=== PATIENT | male | born 1985 | race Caucasian/White ===

== ENCOUNTER 2019-01-12 08:00 | Outpatient (CLI) | payer MEDICAID ==
[2019-01-12 19:12] LABS: BASOPHILS % (AUTO) 0.4 %; EOSINOPHILS # (AUTO) 0.1 10^3/uL (0.0-0.7); EOSINOPHILS % (AUTO) 1.5 %; HGB - HEMOGLOBIN 13.7 g/dL (14.0-18.0); LYMPHOCYTES # (AUTO) 2.3 10^3/uL (1.5-3.5); LYMPHOCYTES % (AUTO) 34.1 %; MEAN CORPUSCULAR HEMOGLOBIN 32.1 pg (27.0-31.0); MEAN CORPUSCULAR HGB CONC 33.4 g/dL (32.0-36.0); MEAN CORPUSCULAR VOLUME 96.2 fL (80.0-94.0); MEAN PLATELET VOLUME 7.9 fL (7.4-11.4); MONOCYTES # (AUTO) 0.6 10^3/uL (0.0-1.0); MONOCYTES % (AUTO) 9.1 %; NEUTROPHILS # (AUTO) 3.8 10^3/uL (1.5-6.6); NEUTROPHILS % (AUTO) 54.9 %; PLT - PLATELET COUNT 182 10^3/uL (130-450); RED BLOOD COUNT 4.26 10^6/uL (4.70-6.10); RED CELL DISTRIBUTION WIDTH 12.5 % (12.0-15.0); WHITE BLOOD COUNT 6.9 x10^3/uL (4.8-10.8)
[2019-01-12 19:31] LABS: CALCIUM 8.8 mg/dL (8.5-10.3)
== END 2019-01-12 23:59 | disposition home or self-care (01) ==
LOC: LAB.N 08:00
PROVIDERS: ATTEND Physician Assistant Medical
DX: F41.1 Generalized anxiety disorder (principal)
CPT/HCPCS: 36415; 80048; 84443; 85025

== ENCOUNTER 2019-01-14 07:11 | Outpatient (CLI) | payer MEDICAID ==
[2019-01-14 13:03] LABS: FOLATE 12.24 ng/mL (5.90 - >24.8)
== END 2019-01-14 23:59 | disposition home or self-care (01) ==
LOC: LAB.N 07:11
PROVIDERS: ATTEND Physician Assistant Medical
DX: D53.9 Nutritional anemia, unspecified (principal)
CPT/HCPCS: 36415; 82607; 82746

== ENCOUNTER 2019-01-14 13:09 | Emergency (ER) | payer MEDICAID ==
--- NOTE | 2019-01-14 13:32 | ED Physician Documentation ---
PD HPI CHEST PAIN - Stated complaint Stated Complaint: REVIEW EKG/DR LIGHT - Chief complaint Chief Complaint: Cardiac - History obtained from History obtained from: Patient - History of Present Illness Timing - onset: How many days ago (has been feeling some general fatigue for few weeks, and also noting some heart palpitations at times. This week has been having intermittent chest pains anteriorly/sternal. Sharp and fleeting. Seen in office and had ECG that was read as abnormal (ST elevations inferiorly) and sent by PV to the ER.) Timing - duration: Days, Weeks Timing - details: Intermittant Quality: Aching, Sharp. No: Pressure, Tightness Location: Substernal Radiation: No: Jaw, Neck Worsened by: Movement, Position. No: Exertion, Eating Associated symptoms: General Weakness, Palpitations. No: Shortness of air, N ausea, Vomiting, Feeling faint / dizzy, Cough Similar symptoms before: Has not had sx before Recently seen: Clinic Review of Systems Constitutional: denies: Fever, Chills Nose: denies: Rhinorrhea / runny nose, Congestion Throat: denies: Sore throat Respiratory: denies: Cough GI: denies: Abdominal Pain, Nausea, Vomiting, Diarrhea Musculoskeletal: denies: Extremity swelling Neurologic: reports: Generalized weakness. denies: Focal weakness, Numbness Psychiatric: reports: Insomnia. denies: Depressed, Anxiety PD PAST MEDICAL HISTORY - Past Medical History Cardiovascular: None Respiratory: None Neuro: None Endocrine/Autoimmune: None - Present Medications Home Medications: Ambulatory Orders Medication Instructions Recorded Confirmed Naproxen 500 mg PO BID #14 tablet 01/14/19 - Allergies Allergies/Adverse Reactions: Allergies Allergy/AdvReac Type Severity Reaction Status Date / Time No Known Drug Allergies Allergy Verified 01/14/19 13:20 PD ED PE NORMAL - Vitals Vital signs reviewed: Yes - General General: Alert and oriented X 3, No acute distress, Well developed/nourished - Neck Neck: Supple, no meningeal sign, No adenopathy - Cardiac Cardiac: RRR, No murmur - Respiratory Respiratory: Clear bilaterally, Other (some chestwall tenderness right parasternal area. ) - Abdomen Abdomen: Soft, Non tender - Derm Derm: Normal color, Warm and dry - Extremities Extremities: No deformity, No tenderness to palpate, No edema, No calf tenderness / cord - Neuro Neuro: Alert and oriented X 3, No motor deficit, Normal speech Results - Vitals Vitals: Oxygen O2 Source Room air - EKG (time done) 13:35 Rate: Rate (enter#) (67) Rhythm: NSR [place]: Normal Intervals: Normal SC QRS: Normal Ischemia: ST elevation c/w repol. No: ST elevation c/w ischemia, ST depression, T wave inversion - Labs Labs: Laboratory Tests 01/14/19 01/14/19 14:00 14:00 Magnesium 2.1 Troponin I < 0.04 PD MEDICAL DECISION MAKING - ED course Complexity details: reviewed results (ECG is early repolarization pattern, c/w age and body habitus. His chest discomfort sounds like palpitations and likely musculoskeletal, as is positional and some reproducible. ), considered differential, d/w patient Departure - Departure Disposition: 01 Home, Self Care Clinical Impression: Heart palpitations Chest pain Qualifiers: Chest pain type: precordial pain Qualified Code(s): R07.2 - Precordial pain Condition: Stable Record reviewed to determine appropriate education?: Yes Instructions: ED Chest Pain Costochondritis Follow-Up: Delonte Light PA-C [Primary Care Provider] - Prescriptions: Naproxen 500 mg PO BID #14 tablet Comments: Your EKG is a variation of normal and does not look like a abnormality. The chest pain I presume is musculoskeletal and you could use some naproxen or ibuprofen twice daily for the next 5 or 6 days with food. The palpitations are most likely related to hydration and make sure you stay well-hydrated through the day and after work and that should reduce the amount of palpitations you feel. Discharge Date/Time: 01/14/19 16:24
[2019-01-14] MEDS ORDERED: NAPROXEN 250 MG TABLET PO STA (13:59)
[2019-01-14] MEDS ORDERED: NAPROXEN 250 MG TABLET PO ONE (14:19)
[2019-01-14 14:31] VITALS: BP 122/84
== END 2019-01-14 16:24 | disposition home or self-care (01) ==
LOC: ED 13:09
DX: R00.2 Palpitations (principal); R07.2 Precordial pain; D53.9 Nutritional anemia, unspecified; R07.89 Other chest pain
CPT/HCPCS: 36415; 82607; 82746; 83735; 84484; 93005; 99283; A9270

== ENCOUNTER 2019-01-14 16:37 | Outpatient (CLI) | payer MEDICAID | END 2019-01-14 16:38 | disposition home or self-care (01) | LOC: RT.N 16:37 | PROVIDERS: ATTEND Physician Assistant Medical | DX: R07.89 Other chest pain (principal) | CPT/HCPCS: 93005 ==

== ENCOUNTER 2020-11-02 08:00 | Outpatient (CLI) | payer BC ==
[2020-11-02 18:22] LABS: BASOPHILS % (AUTO) 0.4 %; EOSINOPHILS # (AUTO) 0.2 10^3/uL (0.0-0.7); EOSINOPHILS % (AUTO) 1.9 %; HGB - HEMOGLOBIN 14.5 g/dL (14.0-18.0); LYMPHOCYTES # (AUTO) 2.8 10^3/uL (1.5-3.5); LYMPHOCYTES % (AUTO) 28.3 %; MEAN CORPUSCULAR HEMOGLOBIN 32.1 pg (27.0-31.0); MEAN CORPUSCULAR HGB CONC 32.5 g/dL (32.0-36.0); MEAN CORPUSCULAR VOLUME 98.7 fL (80.0-94.0); MEAN PLATELET VOLUME 9.8 fL (7.4-11.4); MONOCYTES % (AUTO) 9.7 %; NEUTROPHILS # (AUTO) 5.9 10^3/uL (1.5-6.6); NEUTROPHILS % (AUTO) 59.3 %; PLT - PLATELET COUNT 231 10^3/uL (130-450); RED BLOOD COUNT 4.52 10^6/uL (4.70-6.10); RED CELL DISTRIBUTION WIDTH 11.6 % (12.0-15.0); WHITE BLOOD COUNT 9.9 x10^3/uL (4.8-10.8)
[2020-11-02 18:34] LABS: ALBUMIN 4.5 g/dL (3.2-5.5); ALBUMIN/GLOBULIN RATIO 1.3 (1.0-2.2); BILIRUBIN,TOTAL 0.6 mg/dL (0.2-1.0); CALCIUM 9.4 mg/dL (8.5-10.3); CREATININE 1.4 mg/dL (0.6-1.2)
== END 2020-11-02 23:59 | disposition home or self-care (01) ==
LOC: LAB.WCP 08:00
PROVIDERS: ATTEND Nurse Practitioner Family
DX: Z00.00 Encounter for general adult medical examination without abnormal findings (principal)
CPT/HCPCS: 36415; 80053; 84443; 85025